=== PATIENT | male | born 1960 | race African-American/Black ===

== ENCOUNTER 2022-10-29 03:04 | Emergency (ER) | payer OTHER ==
[2022-10-29] MEDS ORDERED: Carvedilol 25 MG TAB ONE (03:21)
[2022-10-29] MEDS ORDERED: Lisinopril 10 MG TAB ONE (03:21)
[2022-10-29] MEDS ORDERED: Spironolactone 25 MG TAB PO SCH (03:30)
[2022-10-29] MEDS ORDERED: Apixaban 5 MG TAB PO SCH (03:30)
[2022-10-29 03:40] LABS: ALT (SGPT) 74 U/L (8-55); AST (SGOT) 40 U/L (5-34); Albumin 3.3 g/dL (3.4-4.8); Alkaline Phosphatase 83 U/L (40-110); Anion Gap 15 mmol/L (10-20); BUN (Urea Nitrogen) 18 mg/dL (8.4-25.7); Bilirubin, Total 0.7 mg/dL (0.2-1.2); Calc. Creatinine Clearance 0 mL/min (70-130); Calcium 8.3 mg/dL (7.8-10.44); Carbon Dioxide 21 mmol/L (23-31); Chloride 112 mmol/L (98-107); Estimated GFR 62; Globulin 3.4 g/dL (2.4-3.5); Glucose 84 mg/dL (80-115); Potassium 4.7 mmol/L (3.5-5.1); Protein, Total 6.7 g/dL (5.8-8.1); Sodium 143 mmol/L (136-145)
[2022-10-29] MEDS ORDERED: Furosemide 20 MG/2 ML VIAL ONE (03:57)
[2022-10-29 04:05] LABS: %Lymphocytes 18.5 % (21.0-51.0); Hemoglobin 14.2 g/dL (14.0-18.0); Manual Diff?? NO; Mean Corpuscular HGB CONC 29.4 g/dL (32.0-36.0); Mean Corpuscular Hemoglobin 25.4 pg (27.0-31.0); Mean Corpuscular Volume 86.3 fl (78.0-98.0); Mean Platelet Volume 8.6 fL (7.4-10.4); Platelet Count 151 10x3/uL (130-400); RBC Distribution Width 18.3 % (11.5-14.5); Red Blood Cell (RBC) Count 5.61 mill/uL (4.70-6.10); White Blood Cell (WBC) Count 9.4 10x3/uL (4.8-10.8)
[2022-10-29 04:06] LABS: #Basophils 0.1 thou/uL (0.0-0.2); #Eosinphils 0.3 thou/uL (0.0-0.7); #Lymphocytes 1.7 thou/uL (1.20-3.40); #Monocytes 0.9 thou/uL (0.11-0.59); #Neutrophils 6.4 thou/uL (1.40-6.50); %Basophils 0.9 % (0.0-1.0); %Monocytes 9.6 % (0.0-10.0)
[2022-10-29 04:22] LABS: CKMB 4.2 ng/mL (0-6.6)
[2022-10-29 06:28] LABS: Troponin I 0.092 ng/mL (< 0.028)
[2022-10-29 10:16] LABS: Troponin I 0.097 ng/mL (< 0.028)
[2022-10-29] MEDS ORDERED: Aspirin 325 MG TAB ONE (10:32)
== END 2022-10-29 13:15 | disposition short-term general hospital (02) ==
LOC: NAV ERS 03:04 → EEVIPCON 03:04 → NAV ERS 13:15
DX: I11.0 Hypertensive heart disease with heart failure (principal); I50.9 Heart failure, unspecified; R77.8 Other specified abnormalities of plasma proteins; Z79.01 Long term (current) use of anticoagulants; Z79.899 Other long term (current) drug therapy
CPT/HCPCS: 36415; 71045; 80053; 82553; 83880; 84484; 85025; 85379; 93005; 94760; 96374; J1940